=== PATIENT | female | born 1955 | race Caucasian/White ===

== ENCOUNTER 2016-11-29 14:09 | Inpatient (IN) | payer OTHER, MEDICARE ==
[~2016-11-29] VITALS: Ht 167.6 cm; Wt 78.4 kg
[2016-12-02] VITALS (12 sets, daily range): BP systolic 123–152; BP diastolic 72–87; PULSE 61–74; RESP 16–20; TEMP 97.4–98.5; O2SAT 97–100
[2016-12-02] MEDS ORDERED: PROPOFOL 200 MG/20 ML AMP IV ONE (12:00)
[2016-12-02] MEDS ORDERED: ONDANSETRON HCL 4 MG/2 ML VIAL IV PUSH ONE (12:00)
[2016-12-02] MEDS ORDERED: NEOSTIGMINE 3 MG/3 ML SYR IV ONE (12:00)
[2016-12-02] MEDS ORDERED: ePHEDrine/NS 25 MG/5 ML SYR IV ONE (12:00)
[2016-12-02] MEDS ORDERED: LACTATED RINGER'S 1000 ML INJ 1,000 ML IV ONE (12:00)
[2016-12-02] MEDS ORDERED: PHENYLEPH/NS 1000 MCG/10 ML SYR IV ONE (12:00)
[2016-12-02] MEDS ORDERED: SULF500T3 PO (13:33)
[2016-12-02] MEDS ORDERED: HYDR-3288 PO (13:33)
[2016-12-02] MEDS ORDERED: AZEL1SPR2 EACH NARE (13:33)
--- NOTE | 2016-12-02 13:43 | EKG ---
Date Performed: 12/02/2016 Time Performed: 13:29:44 PTAGE: 61 years EKG: Sinus rhythm WITH FIRST DEGREE AV BLOCK POSSIBLE LEFT ATRIAL ENLARGEMENT PROLONGED QT INTERVAL ABNORMAL ECG NO PREVIOUS TRACING DOCTOR: Carlos Beasley Interpretating Date/Time 12/02/2016 13:41:25
[2016-12-02] MEDS ORDERED: CHLORHEXIDINE GLUCONATE 2 % 1 PACK (2 CLOTHS) TOPICAL PRN (13:45)
[2016-12-02] MEDS ORDERED: POVIDONE IODINE 5% (ANTISEPSIS KIT) 4 APPLICATIONS EACH NARE PRN (13:45)
[2016-12-02] MEDS ORDERED: METRONIDAZOLE 500 MG/100 ML ISONTONIC SOLN IV SCH (13:45)
[2016-12-02] MEDS ORDERED: METOPROLOL TARTRATE 25 MG TAB PO PRN (13:45)
[2016-12-02] MEDS ORDERED: DEXT 5%-NACL 0.9% 1000 ML INJ 1,000 ML IV SCH (13:45)
[2016-12-02] MEDS ORDERED: ceFAZolin 1,000 MG/NS 100 ML IV SCH ×2 (13:45)
[2016-12-02] MEDS ORDERED: ALVIMOPAN 12 MG CAPSULE - On Call PO SCH (13:45)
[2016-12-02] MEDS ORDERED: SODIUM CHLORID 0.9% 500 ML IV PRN (13:45)
[2016-12-02] MEDS ORDERED: LACTATED RINGER'S 1000 ML IV PRN (13:45)
[2016-12-02] MEDS ORDERED: INSULIN HUMAN REGULAR 1,000 UNITS/10 ML VIAL SQ PRN (13:45)
[2016-12-02 13:50] LABS: AUTOMATED NEUTROPHIL # 5.7 TH/MM3 (1.8-7.7); BASOPHIL # 0.1 TH/MM3 (0-0.2); BASOPHIL % 0.8 % (0.0-2.0); EOSINOPHIL # 0.1 TH/MM3 (0-0.4); EOSINOPHIL % 1.4 % (0.0-4.0); HEMATOCRIT 43.7 % (35.0-46.0); HEMO FLAGS DIFF FINAL; LYMPHOCYTE # 2.9 TH/MM3 (1.0-4.8); MEAN CORPUSCULAR HEMOGLOBIN 29.7 PG (27.0-34.0); MEAN CORPUSCULAR HGB CONC 34.1 % (32.0-36.0); MONO % 6.3 % (0.0-8.0); NEUT % 60.5 % (16.0-70.0); PLATELET COUNT 210 TH/MM3 (150-450); RED BLOOD COUNT 5.02 MIL/MM3 (4.00-5.30); WHITE BLOOD COUNT 9.5 TH/MM3 (4.0-11.0)
[2016-12-02] MEDS: ALVIMOPAN 12 MG CAPSULE - Post-op dosing PO SCH (13:50)
[2016-12-02 13:52] LABS: BLOOD, URINE NEG (NEG); GLUCOSE,URINE NEG (NEG); HYALINE CAST, URINE 1 /lpf (RARE); KETONE, URINE 40 mg/dL (NEG); MUCUS URINE FEW /lpf (OCC); NITRITE,URINE NEG (NEG); PH, URINE 5.5 (5.0-8.5); SQUAMOUS EPITHELIAL CELL URINE 1 /hpf (0-5); URINE COLOR YELLOW (YELLW/STRAW)
[2016-12-02 13:58] LABS: APTT (PATIENT) 27.4 SEC (24.3-30.1); PROTHROMBIN TIME - PATIENT 11.2 SEC (9.8-11.6)
[2016-12-02 14:01] LABS: COMMENT (UR) CULT NOT INDICATED; CULTURE IF INDICATED CULT NOT INDICATED
[2016-12-02 14:08] LABS: ALT (GPT) 24 U/L (10-53); ANION GAP 9 MEQ/L (5-15); AST (GOT) 23 U/L (15-37); BICARBONATE 26.3 MEQ/L (21.0-32.0); BLOOD UREA NITROGEN 13 MG/DL (7-18); CHLORIDE 108 MEQ/L (98-107); GLOMERULAR FILTRATION RATE 95 ML/MIN (>89); POTASSIUM 3.7 MEQ/L (3.5-5.1); SODIUM (NA) 143 MEQ/L (136-145)
[2016-12-02 14:10] LABS: ALKALINE PHOSPHATASE 94 U/L (45-117); TOTAL BILIRUBIN ADULT 0.4 MG/DL (0.2-1.0)
--- NOTE | 2016-12-02 14:27 | PD.HP.UP ---
H&P Update Note The Pre-Admit History and Physical Examination regarding the above named patient was reviewed (including, but not limited to, vital signs, heart, lungs, co-morbid conditions), and upon re-examination it is noted that: the patient's condition has not significantly changed since the last examination. Marcial Garcia MD Dec 02, 2016 14:27
[2016-12-02] MEDS ORDERED: MIDAZOLAM HCL 2 MG/2 ML VIAL ONE (14:45)
[2016-12-02] MEDS ORDERED: FAMOTIDINE 20 MG/2 ML VIAL ONE (14:45)
[2016-12-02] MEDS ORDERED: ACETAMINOPHEN 1000 MG/100 ML VIAL IV ONE (14:46)
[2016-12-02] MEDS ORDERED: ZOLPIDEM TARTRATE 5 MG TAB PO PRN (16:00)
[2016-12-02] MEDS ORDERED: NALOXONE HCL 0.4 MG/ML AMP IV PRN (16:00)
[2016-12-02] MEDS ORDERED: ACETAMINOPHEN/HYDROcodone 325 MG/5 MG TAB PO PRN ×2 (16:00)
[2016-12-02] MEDS ORDERED: Post-op Orders (for Pharmacy) MISC XX ONE (16:00)
[2016-12-02] MEDS ORDERED: POTASSIUM CHLOR 20 MEQ PREMIX 100 ML IV PRN (16:00)
[2016-12-02] MEDS ORDERED: ENALAPRILAT 1.25 MG/ML VIAL IV PRN (16:00)
[2016-12-02] MEDS ORDERED: SODIUM CHLORIDE 0.9% FLUSH 10 ML FLUSH IV FLUSH PRN (16:00)
[2016-12-02] MEDS ORDERED: BENZOCAINE 6 MG/MENTHOL 10 MG LOZENGE BUCCAL PRN (16:00)
[2016-12-02] MEDS ORDERED: POTASSIUM CHLOR 40 MEQ PREMIX 100 ML IV PRN (16:00)
[2016-12-02] MEDS ORDERED: DO NOT ADM ANY ANTICOAGULANT DRUGS PRN (16:10)
[2016-12-02] MEDS ORDERED: fentaNYL CITRATE 250 MCG/5 ML AMP ONE (16:15)
[2016-12-02] MEDS ORDERED: *morphine SULFATE 8 MG/ML PERIprocedure ONLY ONE ×2 (16:17→16:39)
[2016-12-02] MEDS: D5-LR + KCL 20 MEQ INJ 1,000 ML IV SCH ×2 (16:45→22:40)
[2016-12-02 17:19] LABS: AUTOMATED NEUTROPHIL # 6.7 TH/MM3 (1.8-7.7); BASOPHIL % 0.5 % (0.0-2.0); EOSINOPHIL # 0.1 TH/MM3 (0-0.4); EOSINOPHIL % 0.9 % (0.0-4.0); HEMATOCRIT 43.2 % (35.0-46.0); HEMO FLAGS DIFF FINAL; LYMPHOCYTE # 2.2 TH/MM3 (1.0-4.8); MEAN CELL VOLUME 89.5 FL (80.0-100.0); MEAN CORPUSCULAR HEMOGLOBIN 28.9 PG (27.0-34.0); MEAN CORPUSCULAR HGB CONC 32.2 % (32.0-36.0); MONO % 5.1 % (0.0-8.0); NEUT % 70.5 % (16.0-70.0); PLATELET COUNT 161 TH/MM3 (150-450); RED BLOOD COUNT 4.82 MIL/MM3 (4.00-5.30); RED CELL DISTRIBUTION WIDTH 15.6 % (11.6-17.2); WHITE BLOOD COUNT 9.4 TH/MM3 (4.0-11.0)
[2016-12-02 17:45] LABS: BICARBONATE 24.7 MEQ/L (21.0-32.0)
[2016-12-02 17:53] LABS: POTASSIUM 4.8 MEQ/L (3.5-5.1)
[2016-12-02] MEDS: MORPHINE SULFATE 30 MG/30 ML PCA IV SCH ×2 (18:11→21:30)
[2016-12-02] MEDS: REMOVE OLD NICODERM (NICOTINE) PATCH T-DERMAL SCH (21:00)
[2016-12-02] MEDS: SODIUM CHLORIDE 0.9% FLUSH 10 ML FLUSH IV FLUSH SCH (21:00)
[2016-12-02] MEDS: ceFAZolin 2 GM PREMIX 50 ML IV SCH (21:00)
[2016-12-02] MEDS: PCA - TOTAL MG MORPHINE DELIVERED PER SHIFT SCH (21:31)
[2016-12-02] MEDS: KETOROLAC TROMETHAMINE 30 MG/ML (IVP) VIAL IVP PRN (21:48)
[2016-12-03] VITALS (20 sets, daily range): BP systolic 119–141; BP diastolic 73–80; PULSE 52–80; RESP 16–18; TEMP 97.5–98.6; O2SAT 95–99
[2016-12-03] MEDS: ceFAZolin 2 GM PREMIX 50 ML IV SCH ×2 (04:18→13:31)
[2016-12-03] MEDS: ONDANSETRON HCL 4 MG/2 ML VIAL IV PRN (04:43)
[2016-12-03] MEDS: D5-LR + KCL 20 MEQ INJ 1,000 ML IV SCH ×3 (05:09→21:11)
[2016-12-03] MEDS: MORPHINE SULFATE 30 MG/30 ML PCA IV SCH (05:10)
[2016-12-03] MEDS: PCA - TOTAL MG MORPHINE DELIVERED PER SHIFT SCH (05:10)
[2016-12-03 06:15] LABS: AUTOMATED NEUTROPHIL # 13.2 TH/MM3 (1.8-7.7); BASOPHIL % 0.3 % (0.0-2.0); EOSINOPHIL # 0.1 TH/MM3 (0-0.4); HEMATOCRIT 39.7 % (35.0-46.0); HEMO FLAGS DIFF FINAL; LYMPH % 4.1 % (9.0-44.0); LYMPHOCYTE # 0.6 TH/MM3 (1.0-4.8); MEAN CELL VOLUME 89.2 FL (80.0-100.0); MEAN CORPUSCULAR HEMOGLOBIN 28.9 PG (27.0-34.0); MEAN CORPUSCULAR HGB CONC 32.5 % (32.0-36.0); MONO % 3.4 % (0.0-8.0); NEUT % 91.2 % (16.0-70.0); PLATELET COUNT 158 TH/MM3 (150-450); RED BLOOD COUNT 4.45 MIL/MM3 (4.00-5.30); RED CELL DISTRIBUTION WIDTH 15.5 % (11.6-17.2); WHITE BLOOD COUNT 14.5 TH/MM3 (4.0-11.0)
[2016-12-03 06:29] LABS: BICARBONATE 24.7 MEQ/L (21.0-32.0); POTASSIUM 3.9 MEQ/L (3.5-5.1)
[2016-12-03] MEDS: SODIUM CHLORIDE 0.9% FLUSH 10 ML FLUSH IV FLUSH SCH ×2 (09:00→19:49)
[2016-12-03] MEDS: NICOTINE 21 MG/24 HR PATCH T-DERMAL SCH (09:43)
--- NOTE | 2016-12-03 12:00 | MP ---
cc: OBEY MALDONADO M.D., JOHN T. M.D. DATE OF SURGERY 12/03/2016 PREOPERATIVE DIAGNOSIS Partial small bowel obstruction. POSTOPERATIVE DIAGNOSIS Partial small bowel obstruction. PROCEDURE Exploratory laparotomy, lysis of adhesions. SURGEON Dr. Garcia. COMPOSITE LAMINATOR Dr. Jimenes. ANESTHESIA General endotracheal. ESTIMATED BLOOD LOSS Minimal. OPERATING TIME 30 minutes. OPERATIVE FINDINGS This patient is a 61-year-old patient who was referred to [place] Dr. Jimenes for a partial mid-small bowel obstruction on CT scan. The patient had a history of Crohn disease with a resection of the ileocecal region in the past. She has been having some months of abdominal discomfort with intermittent abdominal pains and nausea but really no vomiting, sometimes inability to move her bowels and at other times goes okay. It sounded like an intermittent partial obstruction. CT scan of the abdomen done four days ago seemed to show a partial obstruction proximal to the ileocecal region with dilated bowel transitioning to bowel that was decompressed. The patient was able to have a full colonoscopy several weeks ago after taking her prep slowly which showed that her colon was normal but she did have aphthous ulcers in her terminal ileum proximal to her anastomosis but no evidence of any stricture from her Crohn disease. At surgery exploration of the abdominal cavity revealed a fairly free abdomen with a minimal amount of adhesions. She did have one band from the distal small bowel down to her right pelvic sidewall. The bowel about 2 feet proximal to the terminal ileum was dilated progressively up to the jejunum where it was chronically dilated and felt thickened, although there was no fat wrapping or anything that appeared to be Crohn's. At the transition point there was no definite adhesion or stricture present or palpable inside the bowel. This appeared to be a partial proximal small bowel obstruction. The stomach was basically empty as she had been n.p.o. for a couple of days. OPERATIVE TECHNIQUE The patient was placed on the table in the supine position. After adequate general tracheal anesthesia, the legs were placed in the perineal lithotomy position and the abdomen and perineum were prepped and draped in the usual manner. A midline incision was made in her previous midline incision and taken up just to above the umbilicus to the right. The abdominal cavity was entered through the linea alba and the abdominal contents were evacuated from the abdominal cavity. The distal small bowel proximal to the ileocolic anastomosis, which appeared to be nearly at the cecum or at most the proximal ascending colon, was normal and very decompressed. About 2 feet proximal to this the bowel started to become more dilated although not tensely dilated and then and then the jejunum was clearly thickened and chronically enlarged. There was one adhesion from the distal small bowel to the left pelvic sidewall that could have allowed internal hernia and intermittent obstruction causing this dilation. This adhesion was lysed without difficulty. Several other distal small bowel adhesions were lysed near the anastomosis but these were not of any consequence as the bowel was decompressed at least 2 feet proximal to this. Once the abdominal cavity was inspected thoroughly including the liver which was palpably normal and the stomach and duodenum which was palpably normal and the remainder of the colon which was palpably normal, the bowels were replaced in the abdominal cavity in an cable engineer outside plant manner with a small amount of omentum that was left over top of the bowels. The abdominal cavity was then closed in a single layer with a double-stranded #1 PDS suture and the skin was closed with running 3-0 Vicryl suture after irrigating the subcutaneous tissue with a liter of saline solution. Dressing was applied. Sponge, needle and instrument counts were reported correct. The estimated blood loss was minimal. The patient procedure the procedure well and left the operating room in good condition. MD TA Goodwin/LEO /4:21 PM /11:49 AM
--- NOTE | 2016-12-03 13:41 | HHI.PR ---
Subjective Remarks Mild nausea, no vomiting. Some itching. Sitting in chair Objective Vital Signs Date Time Temp Pulse Resp B/P Pulse Ox O2 Delivery O2 Flow Rate FiO2 12/03/16 12:39 98.3 66 16 141/80 99 12/03/16 08:24 98.2 80 16 132/75 98 12/03/16 07:48 68 12/03/16 06:00 62 12/03/16 05:15 16 12/03/16 05:10 16 12/03/16 05:10 16 12/03/16 05:10 16 12/03/16 05:00 65 12/03/16 04:00 65 12/03/16 03:50 97.7 73 16 119/76 97 12/03/16 03:50 97 Nasal Cannula 2.00 12/03/16 03:00 67 12/03/16 02:00 71 12/03/16 01:00 69 12/03/16 00:00 76 12/02/16 23:30 97.8 61 16 138/72 98 12/02/16 23:30 98 Nasal Cannula 2.00 12/02/16 23:00 69 12/02/16 22:00 16 12/02/16 22:00 74 12/02/16 21:31 16 12/02/16 21:30 16 12/02/16 21:00 72 12/02/16 20:04 98 Nasal Cannula 2.00 12/02/16 20:00 68 12/02/16 19:40 99 Nasal Cannula 2.00 12/02/16 19:40 97.4 71 16 152/87 99 12/02/16 19:00 72 12/02/16 18:27 97.5 69 17 151/82 100 12/02/16 18:25 66 12/02/16 18:11 16 12/02/16 18:09 97.5 69 20 151/82 100 12/02/16 17:40 62 16 173/78 100 Nasal Cannula 2 12/02/16 17:30 66 16 182/84 99 Nasal Cannula 2 12/02/16 17:15 66 16 162/76 100 Nasal Cannula 2 12/02/16 17:00 60 16 176/79 100 Nasal Cannula 2 12/02/16 16:45 59 16 159/69 100 Nasal Cannula 2 12/02/16 16:30 62 16 147/70 100 Nasal Cannula 2 12/02/16 16:10 97.4 75 16 139/66 100 Nasal Cannula 2 I/O 12/02/16 12/02/16 12/02/16 12/03/16 12/03/16 12/03/16 07:00 15:00 23:00 07:00 15:00 23:00 Intake Total 1800 ml 2006 ml Output Total 150 ml 350 ml Balance 1650 ml 1656 ml Intake Oral 100 ml IV Total 800 ml 1906 ml Other 1000 ml Output Urine Total 150 ml 350 ml Estimated Blood Loss 0 ml # Bowel Movements 0 Result Diagram: 12/03/16 0540 12/03/16 0540 Objective Remarks VS-S Abd: flat,soft, dressing dry Labs:ok I&Os:ok Assessment and Plan Assessment and Plan Stable. POD#1 D/C coronado and Tele. Transfer to [facility]. [facility] today. [place] tomorrow Marcial Garcia MD Dec 03, 2016 13:41
[2016-12-03] MEDS: ACETAMINOPHEN/HYDROcodone 325 MG/10 MG TAB PO PRN ×2 (17:11→22:22)
[2016-12-03] MEDS: ALVIMOPAN 12 MG CAPSULE - Post-op dosing PO SCH (19:49)
[2016-12-03] MEDS: REMOVE OLD NICODERM (NICOTINE) PATCH T-DERMAL SCH (19:49)
[2016-12-03] MEDS ORDERED: ALVIMOPAN 12 MG CAPSULE PO SCH (21:00)
[2016-12-04 00:17] VITALS: BP 130/72; PULSE 64; RESP 20; TEMP 98.7; O2SAT 95
[2016-12-04] MEDS: ACETAMINOPHEN/HYDROcodone 325 MG/10 MG TAB PO PRN ×5 (05:28→22:54)
[2016-12-04 06:21] LABS: AUTOMATED NEUTROPHIL # 7.2 TH/MM3 (1.8-7.7); BASOPHIL % 0.2 % (0.0-2.0); EOSINOPHIL # 0.3 TH/MM3 (0-0.4); EOSINOPHIL % 2.7 % (0.0-4.0); HEMATOCRIT 37.4 % (35.0-46.0); HEMO FLAGS DIFF FINAL; LYMPH % 15.2 % (9.0-44.0); LYMPHOCYTE # 1.4 TH/MM3 (1.0-4.8); MEAN CELL VOLUME 88.8 FL (80.0-100.0); MEAN CORPUSCULAR HEMOGLOBIN 29.8 PG (27.0-34.0); MEAN CORPUSCULAR HGB CONC 33.6 % (32.0-36.0); MONO % 5.9 % (0.0-8.0); PLATELET COUNT 140 TH/MM3 (150-450); RED BLOOD COUNT 4.21 MIL/MM3 (4.00-5.30); RED CELL DISTRIBUTION WIDTH 15.8 % (11.6-17.2); WHITE BLOOD COUNT 9.5 TH/MM3 (4.0-11.0)
[2016-12-04 06:43] LABS: BICARBONATE 25.6 MEQ/L (21.0-32.0); POTASSIUM 3.8 MEQ/L (3.5-5.1)
[2016-12-04 08:00] VITALS: BP 166/73; PULSE 68; RESP 17; TEMP 98.4; O2SAT 94
[2016-12-04] MEDS: SODIUM CHLORIDE 0.9% FLUSH 10 ML FLUSH IV FLUSH SCH ×2 (09:00→20:00)
--- NOTE | 2016-12-04 09:04 | HHI.PR ---
Subjective Remarks No more itching. Hungry. No flatus or BMs. Objective Vital Signs Date Time Temp Pulse Resp B/P Pulse Ox O2 Delivery O2 Flow Rate FiO2 12/04/16 08:00 98.4 68 17 166/73 94 12/04/16 00:17 98.7 64 20 130/72 95 12/03/16 22:00 Room Air 12/03/16 20:39 97.5 52 18 140/73 95 12/03/16 18:12 16 12/03/16 16:30 98.6 66 16 141/80 99 12/03/16 16:30 99 Room Air 12/03/16 14:29 17 12/03/16 12:39 98.3 66 16 141/80 99 12/03/16 12:00 68 12/03/16 11:00 68 12/03/16 11:00 Room Air 12/03/16 10:00 72 I/O 12/03/16 12/03/16 12/03/16 12/04/16 12/04/16 12/04/16 07:00 15:00 23:00 07:00 15:00 23:00 Intake Total 2006 ml 2317 ml 968 ml Output Total 350 ml 1350 ml Balance 1656 ml 967 ml 968 ml Intake Oral 100 ml 520 ml IV Total 1906 ml 1797 ml 968 ml Output Urine Total 350 ml 1350 ml # Bowel Movements 0 0 Result Diagram: 12/04/16 0454 12/04/16 0454 Objective Remarks VS-S Abd: flat,soft, dressing removed, wound clean. Labs:ok I&Os:ok Assessment and Plan Assessment and Plan Stable. POD#2 FLD today. Advance tomorrow.Ambulate Marcial Garcia MD Dec 04, 2016 09:04
[2016-12-04] MEDS: ALVIMOPAN 12 MG CAPSULE - Post-op dosing PO SCH ×2 (09:17→20:00)
[2016-12-04] MEDS: D5-LR + KCL 20 MEQ INJ 1,000 ML IV SCH ×2 (09:17→14:40)
[2016-12-04] MEDS: NICOTINE 21 MG/24 HR PATCH T-DERMAL SCH (09:18)
[2016-12-04] MEDS: ONDANSETRON HCL 4 MG/2 ML VIAL IV PRN (17:45)
[2016-12-04 20:00] VITALS: BP 163/77; PULSE 79; RESP 17; TEMP 96.6; O2SAT 97
[2016-12-04] MEDS: REMOVE OLD NICODERM (NICOTINE) PATCH T-DERMAL SCH (20:01)
[2016-12-05 00:56] VITALS: BP 138/73; PULSE 68; RESP 17; TEMP 96; O2SAT 98
[2016-12-05] MEDS: D5-LR + KCL 20 MEQ INJ 1,000 ML IV SCH (01:17)
[2016-12-05] MEDS: KETOROLAC TROMETHAMINE 30 MG/ML (IVP) VIAL IVP PRN (02:07)
[2016-12-05 08:00] VITALS: BP 170/81; PULSE 75; RESP 18; TEMP 97.6; O2SAT 93
[2016-12-05] MEDS: ACETAMINOPHEN/HYDROcodone 325 MG/10 MG TAB PO PRN ×2 (08:24→14:34)
[2016-12-05] MEDS: ALVIMOPAN 12 MG CAPSULE - Post-op dosing PO SCH (08:24)
[2016-12-05] MEDS: SODIUM CHLORIDE 0.9% FLUSH 10 ML FLUSH IV FLUSH SCH (08:25)
[2016-12-05] MEDS: NICOTINE 21 MG/24 HR PATCH T-DERMAL SCH (08:25)
[2016-12-05 12:00] VITALS: BP 134/75; PULSE 66; RESP 17; TEMP 97; O2SAT 94
--- NOTE | 2016-12-05 13:25 | HHI.DCPOC ---
Discharge Care Plan Diagnosis: (1) Partial small bowel obstruction (2) Lysis of adhesions Your Health Problems Are: Incision/Drains Appetite Changes Irregular Bowel Function Exercise Tolerance Loss of Movements Goals to Promote Your Health * To prevent worsening of your condition and complications * To maintain your health at the optimal level Directions to Meet Your Goals Take your medications as prescribed Follow your dietary instruction Follow activity as directed Keep your appointments as scheduled Take your immunizations and boosters as scheduled If your symptoms worsen call your PCP, if no PCP go to Urgent Care Center or Emergency Room Smoking is Dangerous to Your Health. Avoid second hand smoke Call the 24-hour hour crisis hotline for domestic abuse at Marcial Garcia MD Dec 05, 2016 13:25
[2016-12-05 16:00] VITALS: BP 175/80; PULSE 68; RESP 17; TEMP 98.1; O2SAT 96
--- NOTE | 2016-12-24 22:54 | MD ---
cc: JANNET DAVIS M.D. ADMISSION DATE: 12/02/2016 DISCHARGE DATE: 12/05/2016 ADMISSION DIAGNOSIS Partial small bowel obstruction. DISCHARGE DIAGNOSIS Partial small bowel obstruction. OPERATIVE PROCEDURE 12/03/2016 exploratory laparotomy, lysis of adhesions. HISTORY This patient is a 61-year-old patient who is referred to me for a partial mid small bowel obstruction on CT scan. The patient had a history of Crohn's disease with a resection of the ileocecal region in the past. She had been having some months of abdominal discomfort with intermittent abdominal pains and nausea, no vomiting. She did have inability to move her bowels and at other times she was able to move them. It sounded like an intermittent partial obstruction. CT scan of the abdomen done 4 days prior to surgery seemed to show a partial obstruction proximal to the ileocecal region with dilated bowel transitioning to bowel that was decompressed. The patient did have a full colonoscopy several weeks prior to this after taking her prep slowly which showed that her colon was normal but she did have abscess ulcers in her terminal ileum consistent with her previous Crohn's disease. HOSPITAL COURSE The patient was admitted to the hospital on 12/02/2016 and eventually discharged on 12/05/2016. At surgery on 12/03/2016 she was found to have a fairly free abdominal cavity with minimal amount of adhesions, although she did have one band from the distal small bowel down to her right pelvic sidewall. About 2 feet proximal to the terminal ileum was dilated progressively up to the jejunum where it was chronically dilated and felt thickened although there was no fat wrapping or anything that appeared to be Crohn's disease. At the transition point there was no definite adhesion or stricture present or anything palpable inside the bowel but the distal bowel was fully decompressed. The stomach had been basically empty as she had been n.p.o. for a couple of days prior to the surgery. It appeared to be a partial proximal small bowel obstruction. HOSPITAL COURSE The patient underwent laparotomy on 12/02/2016. On the first postoperative day she had mild nausea, no vomiting, some itching, sitting in the chair. On the second postoperative day she continued to do well and her diet was advanced to full liquids. On the third postoperative day she did well and was discharged from the hospital in good condition. DISCHARGE INSTRUCTIONS She was instructed to do no driving for 2 weeks, do no heavy lifting for 6 weeks and to call me with any problems. MD TA Goodwin/MARISSA /10:22 AM /10:44 PM
== END 2016-12-05 17:45 | disposition home or self-care (01) | DRG 337 ==
LOC: HSDI 12-02 12:33 → HCIN 12-02 17:41 → N07A 12-03 18:29
PROVIDERS: ADMIT Colon & Rectal Surgery; ATTEND Colon & Rectal Surgery
PROC: 0DN80ZZ Release Small Intestine, Open Approach (ICD-10-PCS; principal; 2016-12-03)
DX: K56.60 Unspecified intestinal obstruction (principal); F17.210 Nicotine dependence, cigarettes, uncomplicated; K21.9 Gastro-esophageal reflux disease without esophagitis
CPT/HCPCS: 76937; 80048; 80053; 81001; 85025; 85610; 85730; 86850; 86900; 86901; 93005; 94150; J0131; J0690; J1885; J2250; J2270; J2370; J2405; J2710; J3010; J3480; J7120